=== PATIENT | female | born 1970 | race Caucasian/White ===

== ENCOUNTER 2020-07-04 13:00 | Emergency (ER) | payer OTHER ==
[2020-07-04 15:15] LABS: BASOPHIL 0.3 % (0-2); EOSINOPHIL 0.2 % (0-5); HCT 37.8 % (37.0-47.0); HGB 12.2 g/dl (12.5-16.0); LYMPHOCYTE 13.9 % (15-48); MCH 28.1 pg (25.0-31.0); MCHC 32.3 g/dL (32.0-36.0); MCV 87.1 fL (78.0-100.0); MONOCYTE 9.8 % (0-12); MPV 8.8 fL (6.0-9.5); NEUTROPHIL 75.3 % (41-80); NRBC 0; PLT 235 K/uL (150-400); RBC 4.34 M/uL (4.20-5.40); RDW 12.1 % (11.5-14.0); WBC 8.6 K/uL (4.0-10.5)
[2020-07-04 15:21] LABS: BILIRUBIN 1+ mg/dL (NEGATIVE); BLOOD 3+ Ery/uL (NEGATIVE); CLARITY HAZY (CLEAR); COLOR YELLOW (YELLOW); GLUCOSE (U) NORMAL (NORMAL); LEUKOCYTES TRACE Leu/uL (NEGATIVE); NITRITE NEGATIVE (NEGATIVE); PROTEIN 2+ mg/dL (NEGATIVE); SPECIFIC GRAVITY 1.025 (1.001-1.030); UROBILINOGEN 0.2 mg/dL (0.2-1.0)
[2020-07-04 15:27] LABS: ALBUMIN 3.1 g/dL (3.4-5.0); BILIRUBIN - TOTAL 0.4 mg/dL (0.2-1.0); BUN/CREAT RATIO (CALC) 16.7 RATIO; CREATININE 0.72 mg/dL (0.51-0.95); GLOBULIN (CALCULATION) 4.2 g/dL; POTASSIUM 3.6 mmol/L (3.5-5.1); TOTAL PROTEIN 7.3 g/dL (6.4-8.2)
[2020-07-04 15:33] LABS: BACTERIA 1+; URINARY WBC 20-50
[2020-07-04 15:34] LABS: SQUAMOUS EPITHELIAL CELLS 20-50
[2020-07-04] MEDS ORDERED: ZOFRAN4 M1 PO (17:21)
== END 2020-07-04 17:41 | disposition home or self-care (01) ==
LOC: FER 13:00
PROVIDERS: Nurse Practitioner Family
DX: N10 Acute pyelonephritis (principal); J45.909 Unspecified asthma, uncomplicated
CPT/HCPCS: 36415; 80053; 81001; 85025; 87088; J1885; J2270; J2405; J7030; Q9967